=== PATIENT | female | born 2000 ===

== ENCOUNTER 2022-12-12 07:53 | Inpatient (IN) | payer OTHER ==
[2022-12-12] MEDS ORDERED: Lidocaine 1% 50 ML MDV INJECT PRN (07:59)
[2022-12-12] MEDS ORDERED: Sodium Chloride 0.9% 20 ML SDV IV PRN (07:59)
[2022-12-12] MEDS ORDERED: Water For Irrigation,Sterile 1,000 ML Container IRR PRN (07:59)
[2022-12-12] MEDS ORDERED: Methylergonovine 0.2 MG/1 ML Amp IM PRN (07:59)
[2022-12-12] MEDS ORDERED: Sodium Chloride 0.9% 10 ML Syringe FLUSH PRN (07:59)
[2022-12-12] MEDS ORDERED: Carboprost Tromethamine 250 MCG/1 mL Vial IM PRN (07:59)
[2022-12-12] MEDS ORDERED: Sodium Chloride 0.9% 2.5 ML Syringe FLUSH PRN (07:59)
[2022-12-12] MEDS ORDERED: Misoprostol 200 MCG Tab PO PRN (07:59)
[2022-12-12] MEDS ORDERED: Tranexamic Acid IN NACL,ISO-OS 1,000 MG in Premix Bag 1 BAG IV PRN ×2 (07:59)
[2022-12-12] MEDS ORDERED: Ondansetron 4 MG/2 ML SDV IVPUSH PRN (07:59)
[2022-12-12] MEDS ORDERED: Oxytocin/0.9 % Sodium Chloride 30 UNIT/500 ML BAG IV SCH ×2 (08:00→08:15)
[2022-12-12] MEDS ORDERED: Terbutaline 1 MG/ML SDV SUBCUT PRN (08:02)
[2022-12-12 08:56] LABS: HEMATOCRIT 38.9 % (36.0-46.0); HEMOGLOBIN 13.5 g/dL (12.0-16.0); MEAN CORPUSCULAR HEMOGLOBIN 31.8 pg (27.0-32.0); MEAN CORPUSCULAR HGB CONC 34.7 g/dL (31.0-37.0); MEAN CORPUSCULAR VOLUME 91.5 fL (80.0-98.0); PLATELET COUNT,PLT 234 K/uL (150-400); RED BLOOD CELL COUNT 4.25 M/uL (4.30-5.90)
[2022-12-12] MEDS: Misoprostol 25 MCG (1/4 of 100 MCG) Tab VAG PRN ×3 (08:57→17:10)
[2022-12-12] MEDS: Lactated Ringers 1,000 ML IV SCH ×2 (08:57→19:59)
[2022-12-12] MEDS: Misoprostol 25 MCG (1/4 of 100 MCG) Tab PO PRN ×3 (08:58→17:10)
[2022-12-12] MEDS ORDERED: Nalbuphine 10 MG/0.5 ML Syringe IM PRN (23:31)
[2022-12-12] MEDS ORDERED: Nalbuphine 10 MG/0.5 ML Syringe IVPUSH PRN (23:51)
[2022-12-13] MEDS: Lactated Ringers 1,000 ML IV SCH ×3 (01:31→18:09)
[2022-12-13] MEDS ORDERED: Bupivacaine 0.5% 10 ML SDV ONE (10:43)
[2022-12-13] MEDS ORDERED: Ropivacaine/PF 400 MG/200 ML PCA ONE (10:43)
[2022-12-13] MEDS ORDERED: Phenylephrine HCl 0.5 MG/5 ML AMP IVPUSH PRN (11:10)
[2022-12-13] MEDS ORDERED: ePHEDrine 50 MG/ML SDV IVPUSH PRN ×2 (11:10)
[2022-12-13] MEDS ORDERED: Ropivacaine HCl/PF 400 MG in Premix Bag 1 BAG EPIDUR SCH (11:15)
[2022-12-13 17:40] LABS: HEMATOCRIT 36.9 % (36.0-46.0); HEMOGLOBIN 12.6 g/dL (12.0-16.0); MEAN CORPUSCULAR HEMOGLOBIN 31.5 pg (27.0-32.0); MEAN CORPUSCULAR HGB CONC 34.1 g/dL (31.0-37.0); MEAN CORPUSCULAR VOLUME 92.3 fL (80.0-98.0); PLATELET COUNT,PLT 223 K/uL (150-400); WHITE BLOOD CELL COUNT,WBC 8.56 K/uL (4.0-11.0)
[2022-12-13] MEDS ORDERED: Acetaminophen 500 MG Tab PO ONE (17:56)
[2022-12-14] MEDS ORDERED: Morphine 2 MG/ML SYRINGE IVPUSH ONE (03:35)
[2022-12-14] MEDS ORDERED: Morphine 2 MG/ML SYRINGE ONE (03:40)
[2022-12-14] MEDS ORDERED: Acetaminophen 500 MG Tab PO PRN (04:32)
[2022-12-14] MEDS ORDERED: Lanolin 100% Cream 7 GM Tube TOP PRN (04:32)
[2022-12-14] MEDS ORDERED: Docusate Sodium 100 MG Cap PO PRN (04:32)
[2022-12-14] MEDS ORDERED: Benzocaine/Menthol 20%-0.5% Spray 78 GM Cannister TOP PRN (04:32)
[2022-12-14] MEDS ORDERED: Bisacodyl 10 MG Supp RECTAL PRN (04:32)
[2022-12-14] MEDS ORDERED: Ibuprofen 400 MG Tab PO PRN (04:32)
[2022-12-14] MEDS: Witch Hazel Medicated Pads 40/Jar TOP PRN (05:00)
[2022-12-14 06:14] LABS: HEMATOCRIT 35.5 % (36.0-46.0); HEMOGLOBIN 11.8 g/dL (12.0-16.0); MEAN CORPUSCULAR HEMOGLOBIN 31.4 pg (27.0-32.0); MEAN CORPUSCULAR HGB CONC 33.2 g/dL (31.0-37.0); MEAN CORPUSCULAR VOLUME 94.4 fL (80.0-98.0); PLATELET COUNT,PLT 200 K/uL (150-400); RED BLOOD CELL COUNT 3.76 M/uL (4.30-5.90); WHITE BLOOD CELL COUNT,WBC 23.78 K/uL (4.0-11.0)
[2022-12-14 06:25] LABS: INR 1.02 (0.86-1.11); PTT,PARTIAL THROMBOPLSTIN TIME 24.5 SEC (23.9-30.7)
[2022-12-14 06:32] LABS: A/G RATIO 0.5 (0.9-1.6); BILIRUBIN TOTAL 0.8 mg/dL (0.2-1.0); CALCIUM 8.9 mg/dL (8.5-10.1); CARBON DIOXIDE,CO2 15.1 mmol/L (21.0-32.0); CREATININE 1.3 mg/dL (0.6-1.0); EST CRCL DRUG DOSING (CG) 61.08 mL/min; POTASSIUM,K 3.9 mmol/L (3.5-5.1); PROTEIN TOTAL,TP 5.8 g/dL (6.4-8.2)
[2022-12-14] MEDS: Ibuprofen 800 MG Tab PO PRN ×3 (07:05→21:42)
[2022-12-14] MEDS ORDERED: ceFAZolin 2 GM in Sodium Chloride 0.9% 50 ML IV ONE (08:15)
[2022-12-14] MEDS ORDERED: ceFAZolin 2 GM Vial ONE (08:27)
[2022-12-14] MEDS ORDERED: Sodium Chloride 0.9% 100 ML ONE (08:27)
[2022-12-14] MEDS: Acetaminophen 500 MG Tab PO PRN ×2 (12:03→19:20)
[2022-12-15] MEDS: Acetaminophen 500 MG Tab PO PRN ×3 (05:05→21:21)
[2022-12-15] MEDS: Ibuprofen 800 MG Tab PO PRN ×2 (05:06→13:21)
[2022-12-15 05:55] LABS: BASOPHILS PERCENT AUTO 0.1 % (0.0-1.5); EOSINOPHILS ABSOLUTE AUTO 0.1 K/uL (0.0-0.7); EOSINOPHILS PERCENT AUTO 0.5 % (0.0-7.0); HEMATOCRIT 22.8 % (36.0-46.0); HEMOGLOBIN 7.6 g/dL (12.0-16.0); LYMPHOCYTES ABSOLUTE AUTO 2.9 K/uL (0.6-2.4); LYMPHOCYTES PERCENT AUTO 20.1 % (16.0-40.0); MEAN CORPUSCULAR HEMOGLOBIN 30.3 pg (27.0-32.0); MEAN CORPUSCULAR HGB CONC 33.3 g/dL (31.0-37.0); MEAN CORPUSCULAR VOLUME 90.8 fL (80.0-98.0); MONOCYTES ABSOLUTE AUTO 0.8 K/uL (0.0-0.8); MONOCYTES PERCENT AUTO 5.7 % (0.0-15.0); NEUTROPHILS ABSOLUTE AUTO 10.5 K/uL (1.4-5.7); NEUTROPHILS PERCENT AUTO 73.6 % (48.0-80.0); NRBC ABSOLUTE 0 K/uL; PLATELET COUNT,PLT 175 K/uL (150-400); RED BLOOD CELL COUNT 2.51 M/uL (4.30-5.90)
[2022-12-15 06:07] LABS: CREATININE 0.8 mg/dL (0.6-1.0); EST CRCL DRUG DOSING (CG) 99.25 mL/min
[2022-12-15] MEDS: Witch Hazel Medicated Pads 40/Jar TOP PRN (21:21)
[2022-12-16] MEDS: Ibuprofen 800 MG Tab PO PRN (01:33)
[2022-12-16 06:00] LABS: HEMATOCRIT 26.1 % (36.0-46.0); HEMOGLOBIN 8.7 g/dL (12.0-16.0); MEAN CORPUSCULAR HEMOGLOBIN 29.8 pg (27.0-32.0); MEAN CORPUSCULAR HGB CONC 33.3 g/dL (31.0-37.0); MEAN CORPUSCULAR VOLUME 89.4 fL (80.0-98.0); MEAN PLATELET VOLUME 9.9 fL (7.40-12.00); RED BLOOD CELL COUNT 2.92 M/uL (4.30-5.90); WHITE BLOOD CELL COUNT,WBC 11.23 K/uL (4.0-11.0)
[2022-12-16] MEDS: Acetaminophen 500 MG Tab PO PRN ×2 (08:04→15:33)
== END 2022-12-16 19:50 | disposition home or self-care (01) | DRG 806 ==
LOC: MW.OBCHECK 07:53 → MW.OB 07:55 → MW.OBCHECK 07:56 → MW.OB 07:59 → OBSVTOIN 12-14 03:22 → MW.OB 12-14 10:50
PROVIDERS: ADMIT Obstetrics & Gynecology Obstetrics; ATTEND Obstetrics & Gynecology Obstetrics
PROC: 10E0XZZ Delivery of Products of Conception, External Approach (ICD-10-PCS; principal; 2022-12-14)
PROC: 0KQM0ZZ Repair Perineum Muscle, Open Approach (ICD-10-PCS; 2022-12-14)
PROC: 3E0P7VZ Introduction of Hormone into Female Reproductive, Via Natural or Artificial Opening (ICD-10-PCS; 2022-12-14)
PROC: 3E033VJ Introduction of Other Hormone into Peripheral Vein, Percutaneous Approach (ICD-10-PCS; 2022-12-14)
PROC: 3E0R3BZ Introduction of Anesthetic Agent into Spinal Canal, Percutaneous Approach (ICD-10-PCS; 2022-12-14)
PROC: 00HU33Z Insertion of Infusion Device into Spinal Canal, Percutaneous Approach (ICD-10-PCS; 2022-12-14)
PROC: 3E0DXGC Introduction of Other Therapeutic Substance into Mouth and Pharynx, External Approach (ICD-10-PCS; 2022-12-14)
PROC: 30233N1 Transfusion of Nonautologous Red Blood Cells into Peripheral Vein, Percutaneous Approach (ICD-10-PCS; 2022-12-14)
DX: O48.0 Post-term pregnancy (principal); O72.1 Other immediate postpartum hemorrhage; Z37.0 Single live birth; O75.2 Pyrexia during labor, not elsewhere classified; Z3A.40 40 weeks gestation of pregnancy; Z88.8 Allergy status to other drugs, medicaments and biological substances; O70.1 Second degree perineal laceration during delivery; O76 Abnormality in fetal heart rate and rhythm complicating labor and delivery
CPT/HCPCS: 01967; 36415; 36430; 59025; 59409; 80053; 82565; 85025; 85027; 85384; 85610; 85730; 86592; 86850; 86900; 86901; 86920; A9270-GY; J0690; J2210; J2270; J2300; J2405; J2590; J2795; J3490; J7120; P9016

== ENCOUNTER 2022-12-26 19:34 | Observation (INO) | payer OTHER ==
[2022-12-26] MEDS ORDERED: Sodium Chloride 0.9% 10 ML Syringe FLUSH PRN (20:24)
[2022-12-26] MEDS ORDERED: Sodium Chloride 0.9% 2.5 ML Syringe FLUSH PRN (20:24)
[2022-12-26 20:44] LABS: BASOPHILS PERCENT AUTO 0.2 % (0.0-1.5); EOSINOPHILS ABSOLUTE AUTO 0.1 K/uL (0.0-0.7); EOSINOPHILS PERCENT AUTO 0.5 % (0.0-7.0); HEMATOCRIT 37.5 % (36.0-46.0); HEMOGLOBIN 12.5 g/dL (12.0-16.0); LYMPHOCYTES ABSOLUTE AUTO 2.8 K/uL (0.6-2.4); LYMPHOCYTES PERCENT AUTO 24.6 % (16.0-40.0); MEAN CORPUSCULAR HEMOGLOBIN 30.5 pg (27.0-32.0); MEAN CORPUSCULAR HGB CONC 33.3 g/dL (31.0-37.0); MEAN CORPUSCULAR VOLUME 91.5 fL (80.0-98.0); MONOCYTES ABSOLUTE AUTO 0.6 K/uL (0.0-0.8); MONOCYTES PERCENT AUTO 5.5 % (0.0-15.0); NEUTROPHILS ABSOLUTE AUTO 7.8 K/uL (1.4-5.7); NEUTROPHILS PERCENT AUTO 69.2 % (48.0-80.0); NRBC ABSOLUTE 0 K/uL; PLATELET COUNT,PLT 516 K/uL (150-400); WHITE BLOOD CELL COUNT,WBC 11.25 K/uL (4.0-11.0)
[2022-12-26 21:00] LABS: CALCIUM 8.7 mg/dL (8.5-10.1); CARBON DIOXIDE,CO2 27.9 mmol/L (21.0-32.0); CREATININE 0.8 mg/dL (0.6-1.0); EST CRCL DRUG DOSING (CG) 99.09 mL/min; POTASSIUM,K 4.1 mmol/L (3.5-5.1)
[2022-12-26] MEDS ORDERED: Morphine 2 MG/ML SYRINGE IVPUSH ONE (21:45)
[2022-12-26] MEDS ORDERED: Naloxone 0.4 MG/ML SDV IVPUSH PRN (21:45)
[2022-12-26] MEDS ORDERED: Ibuprofen 800 MG Tab PO PRN (23:42)
[2022-12-27] MEDS ORDERED: Acetaminophen 500 MG Tab PO PRN (00:02)
[2022-12-27 00:50] LABS: APPEARANCE,URINE CLOUDY; BILIRUBIN,URINE NEGATIVE (NEGATIVE); COLOR,URINE YELLOW; GLUCOSE,URINE NEGATIVE (NEGATIVE); KETONES,URINE NEGATIVE (NEGATIVE); LEUKOCYTE ESTERASE,URINE LARGE (NEGATIVE); NITRITE,URINE NEGATIVE (NEGATIVE); OCCULT BLOOD,URINE LARGE (NEGATIVE); PROTEIN,URINE TRACE mg/dL (NEGATIVE); UROBILINOGEN,URINE 0.2 EU/dL (<2.0)
[2022-12-27 00:57] LABS: BACTERIA,URINE 1+ (NEGATIVE); EPITHELIAL CELLS,URINE FEW (NONE-FEW); MUCUS,URINE LIGHT (NONE-MOD); WBC,URINE TO NUMEROUS TO COUNT (0-5/HPF)
[2022-12-27 01:41] LABS: CANDIDA DNA PROBE NEGATIVE (NEGATIVE); GARDNERELLA DNA PROBE NEGATIVE (NEGATIVE); TRICHOMONAS DNA PROBE NEGATIVE (NEGATIVE)
[2022-12-27] MEDS ORDERED: Amoxicillin/Clavulanate K 875-125 MG Tab PO ONE (10:10)
[2022-12-27] MEDS ORDERED: Acetaminophen/oxyCODONE 325-5 MG Tab PO ONE (10:11)
[2022-12-27 10:13] LABS: BASOPHILS PERCENT AUTO 0.4 % (0.0-1.5); EOSINOPHILS ABSOLUTE AUTO 0.1 K/uL (0.0-0.7); EOSINOPHILS PERCENT AUTO 1.3 % (0.0-7.0); HEMOGLOBIN 12.3 g/dL (12.0-16.0); LYMPHOCYTES ABSOLUTE AUTO 2.7 K/uL (0.6-2.4); LYMPHOCYTES PERCENT AUTO 37.6 % (16.0-40.0); MEAN CORPUSCULAR HEMOGLOBIN 30.4 pg (27.0-32.0); MEAN CORPUSCULAR HGB CONC 33.2 g/dL (31.0-37.0); MEAN CORPUSCULAR VOLUME 91.4 fL (80.0-98.0); MONOCYTES ABSOLUTE AUTO 0.4 K/uL (0.0-0.8); MONOCYTES PERCENT AUTO 6.1 % (0.0-15.0); NEUTROPHILS ABSOLUTE AUTO 3.9 K/uL (1.4-5.7); NEUTROPHILS PERCENT AUTO 54.6 % (48.0-80.0); NRBC ABSOLUTE 0 K/uL; PLATELET COUNT,PLT 453 K/uL (150-400); RED BLOOD CELL COUNT 4.05 M/uL (4.30-5.90)
== END 2022-12-27 12:20 | disposition home or self-care (01) ==
LOC: MW.ED 19:34 → MW.MS 22:05
PROVIDERS: ADMIT Obstetrics & Gynecology Obstetrics; ATTEND Obstetrics & Gynecology Obstetrics
DX: T81.30XA Disruption of wound, unspecified, initial encounter (principal); O99.893 Other specified diseases and conditions complicating puerperium; R10.2 Pelvic and perineal pain; Z88.8 Allergy status to other drugs, medicaments and biological substances
CPT/HCPCS: 36415; 76856; 76856-26; 80048; 81001; 85025; 87086; 87480; 87510; 87660; 96374; 99284; 99285-25; A9270-GY; G0378; J2270; J3490